=== PATIENT | female | born 1945 | race Caucasian/White ===

== ENCOUNTER → 2016-09-23 | Outpatient (CLI) | payer MEDICARE, BC ==
[~2016-09-23] MED LIST: ALDACTONE25 MG PO; AMITRIPTYLINE H50 MG PO; AMITRYPTYLINE PO; ASPIRIN EC81 M1 PO; AZITHROMYCIN500 MG PO; CEFPODOXIME PR100 MG PO; CELEXA20 MG PO; CLOPIDOGREL75 MG PO; COREG12.5 MG PO; COREG6.25 MG PO; COUMADIN6 MG PO; FERROUS GLUCON325 M1 PO; FOLIC ACID-B12/1 TAB PO; FOLIC ACID1 MG PO; FUROSEMIDE40 MG PO; GLUCOPHAGE500 MG PO; HYDRALAZINE HCL25 MG PO; IMDUR-ER30 M2 PO; LASIX PO; LISINOPRIL10 MG PO; LOVENOX40 MG/0.4 INJ; METFORMIN HCL500 M1 PO; NITROGLYCERIN0.4 MG SL; OXYCODON HCL-AP1 TA2 PO; PERCOCET 10/3251 TAB PO; PLAVIX PO; POTASSIUM PO; PREDNISONE PO; SIMVASTATIN40 MG PO; SYMBICORT INH; TOPICAINE113 GM TOP; VIT B-12 PO; ZITHROMAX500 MG PO; ZOFRAN ODT4 MG PO
--- NOTE | ~2016-09-23 | BD1 ---
[facility] A Service of [facility] RADIOLOGY TEXT RESULTS PATIENT: GALE HELMS LOCATION: [facility] : 41 UNIT #: [id number] AGE: [address]: Laurie Swartz MD SEX: F ORDER DR: [id number] [place] [id number] O MR#: [id number] Acc #: [id number] NAME: GALE HELMS : 1945 SEX: F STUDY DATE/TIME: 09/29/2016 10:33 UNIT: [facility] ROOM: STUDY DESCRIPTION: Dexa Bone Dens 1+ Site Attending Physician: Laurie Swartz M.D. Referring Physician: Laurie Swartz M.D. Ordering Physician: Laurie Swartz M.D. Primary Care Physician: Laurie Swartz M.D. MEDICAL IMAGING REPORT This report is preliminary unless electronic signature is present. EXAM Bone density scan 09/29/2016 HISTORY The history is postmenopausal. Bone density scanning performed upper 4 lumbar vertebral segments and both proximal femurs [age]-year-old 184-pound female. COMPARISON STUDIES Comparison 12/10/2012. FINDINGS L1-L4: Total bone mineral density 1.085 g per square centimeter for a T-score 0.8 standard deviations below mean for a reference population normal young individuals and a Z-score 0.3 standard deviations above the mean for age-match population. Compared to 12/10/2012 there has been a 2.3% decrease in bone mineral density in the upper 4 lumbar vertebral segments overall. PROXIMAL LEFT FEMUR: Total bone mineral density 0.729 g per square centimeter for a T-score 2.2 standard deviations below mean for a reference population normal young individuals and a Z-score 1.0 standard deviations below mean for age-match population. In the left femoral neck specifically the bone mineral density is 0.678 g per square centimeter for a T-score 2.6 standard deviations below mean for a reference population normal young individuals and a Z-score 1.1 standard deviations below mean for age-match population. Using total bone mineral density as trending value in this region there has been a 6.4% statistically significant decrease in the proximal left femoral bone mineral density compared to 2012. In the proximal right femur the total bone mineral density is 0.623 g per STS. [facility] A Service of [facility] RADIOLOGY TEXT RESULTS PATIENT: GALE HELMS LOCATION: [facility] : 41 UNIT #: [id number] AGE: [address]: Laurie Swartz MD SEX: F ORDER DR: square centimeter for a T-score 3.1 standard deviations below mean for a reference population normal young individuals and a Z-score 1.8 standard deviations below the mean for age-matched population. In the right femoral neck specifically the bone mineral density is 0.657 g per square centimeter for a T-score 2.7 standard deviations below mean for a reference population normal young individuals and a Z-score 1.3 standard deviations below mean for age-match population. Using total bone mineral density as trending value in this region there has been a statistically significant 18.1% decrease in bone mineral density proximal right femur compared to 12/10/2012. IMPRESSION 1. Osteoporosis in the proximal right femur. Patient felt to be at significantly increased risk for fracture. Treatment options may be considered. Continued surveillance is recommended. Incidental note made of osteoporosis in the bilateral femoral necks as well. 2. Statistically significant decreases in proximal femoral bone mineral density bilaterally compared to November 2012. See complete trending data in body of report above. Dictated by... Isauro Haas M.D. THIS IS AN ELECTRONICALLY VERIFIED REPORT Isauro Haas M.D. at 10/08/2016 10:15 AM Ila TD: 10/02/2016 16:41 JOB #: [id number] MEDICAL IMAGING REPORT Page 1 of 1
--- NOTE | ~2016-09-23 | MY11 ---
[facility] A Service of [facility] RADIOLOGY TEXT RESULTS PATIENT: GALE HELMS LOCATION: [facility] : 41 UNIT #: [id number] AGE: [address]: Laurie Swartz MD SEX: F ORDER DR: [id number] [place] [id number] O MR#: [id number] Acc #: [id number] NAME: GALE HELMS : 1945 SEX: F STUDY DATE/TIME: 09/23/2016 11:12 UNIT: [facility] ROOM: STUDY DESCRIPTION: MY Mammogram Screening Dig Surinder Attending Physician: Laurie Swartz M.D. Referring Physician: Laurie Swartz M.D. Ordering Physician: Laurie Swartz M.D. Primary Care Physician: Laurie Swartz M.D. MEDICAL IMAGING REPORT This report is preliminary unless electronic signature is present. EXAM Digital screening mammogram 09/23/2016 HISTORY 71-year-old woman. No risk elevation. Annual screen. COMPARISON 02/08/2009, 12/10/2012 FINDINGS Digital imaging of each breast was completed utilizing a two-view examination of each breast in craniocaudal and mediolateral-oblique projections. Review and interpretation of digital mammograms include a second review in conjunction with FDA-approved CAD device. There is a normal parenchymal presentation bilaterally consistent with the patient's age. There are no breast masses imaged and no parenchymal asymmetry is visualized. There are no suspicious microcalcifications and I see no focal architectural disturbance. Breast parenchyma is fatty-replaced. IMPRESSION 1. Negative screening digital mammogram. One-year follow up recommended. 2. Breast parenchyma is fatty-replaced. Patients over the age of 40 are entered into a reminder system with target due date for the next mammogram. A result letter will also be sent to the patient. BIRADS: 1 Negative [facility] A Service of [facility] RADIOLOGY TEXT RESULTS PATIENT: GALE HEMLS LOCATION: [facility] : 41 UNIT #: [id number] AGE: [address]: Laurie wSartz MD SEX: F ORDER DR: Dictated by... Bib Greer M.D. THIS IS AN ELECTRONICALLY VERIFIED REPORT Bib Greer M.D. at 09/24/2016 8:05 AM VLAD/jose c TD: 09/23/2016 17:17 JOB #: [id number] MEDICAL IMAGING REPORT Page 1 of 1
== END | disposition home or self-care (01) ==
LOC: SMAM 10:40
DX: Z12.31 Encounter for screening mammogram for malignant neoplasm of breast (principal); M85.89 Other specified disorders of bone density and structure, multiple sites; M81.0 Age-related osteoporosis without current pathological fracture; Z78.0 Asymptomatic menopausal state
CPT/HCPCS: 77080; G0202